=== PATIENT | male | born 1955 | race Two or more races ===

== ENCOUNTER → 2018-02-12 | Outpatient (CLI) | payer OTHER | END | disposition home or self-care (01) | LOC: RAD 12:12 | DX: I10 Essential (primary) hypertension (principal) ==

== ENCOUNTER 2018-03-25 06:33 | Outpatient (CLI) | payer OTHER | END 2018-03-25 06:37 | disposition home or self-care (01) | LOC: SONOGRAMA 06:33 | DX: E04.1 Nontoxic single thyroid nodule (principal) ==

== ENCOUNTER 2021-07-17 08:00 | Outpatient (CLI) | payer OTHER | END 2021-07-17 08:30 | disposition home or self-care (01) | LOC: PPH VACUNA 08:00 | DX: Z23 Encounter for immunization (principal) ==

== ENCOUNTER 2023-12-31 10:15 | Outpatient (CLI) | payer OTHER | END 2023-12-31 10:17 | disposition home or self-care (01) | LOC: SONOGRAMA 10:15 | PROVIDERS: ATTEND Pathology Anatomic Pathology & Clinical Pathology | DX: D34 Benign neoplasm of thyroid gland (principal); E07.89 Other specified disorders of thyroid; E04.1 Nontoxic single thyroid nodule ==